=== PATIENT | male | born 1965 | race Caucasian/White ===

== ENCOUNTER → 2019-04-01 | Outpatient (CLI) | payer OTHER | END | disposition home or self-care (01) | LOC: LABPV 11:59 | PROVIDERS: ATTEND Internal Medicine | DX: Z02.1 Encounter for pre-employment examination (principal) | CPT/HCPCS: 86706; 86735; 86762; 86765; 86787 ==

== ENCOUNTER 2019-10-04 13:44 | Emergency (ER) | payer OTHER ==
[~2019-10-04] VITALS: Ht 177.8 cm; Wt 81.8 kg
[2019-10-04 13:48] VITALS: BP 124/76
[2019-10-04] MEDS ORDERED: ALBU8HFA IH (14:04)
== END 2019-10-04 15:07 | disposition home or self-care (01) ==
LOC: EMS 13:47
DX: J06.9 Acute upper respiratory infection, unspecified (principal); J45.909 Unspecified asthma, uncomplicated; F17.210 Nicotine dependence, cigarettes, uncomplicated; Z03.818 Encounter for observation for suspected exposure to other biological agents ruled out; Z91.018 Allergy to other foods
CPT/HCPCS: 87635; 99406